=== PATIENT | male | born 1990 | race African-American/Black ===

== ENCOUNTER → 2020-12-06 | Outpatient (CLI) | payer OTHER ==
[2020-12-06 13:38] LABS: SEMEN VOLUME 2.1 ML (1.5-5.0)
== END ==
LOC: LAB 12:09
PROVIDERS: ATTEND Obstetrics & Gynecology Gynecology
DX: N46.9 Male infertility, unspecified (principal)
CPT/HCPCS: 89320

== ENCOUNTER → 2021-01-23 | Outpatient (CLI) | payer OTHER ==
[2021-01-23 10:01] LABS: SEMEN VOLUME 2.5 ML (1.5-5.0)
== END ==
LOC: LABNPT 08:11
PROVIDERS: ATTEND Urology
DX: N46.9 Male infertility, unspecified (principal)
CPT/HCPCS: 89320